=== PATIENT | male | born 1940 | race Caucasian/White ===

== ENCOUNTER 2017-07-23 08:15 | Inpatient (IN) | payer MEDICARE, MEDICAID ==
[2017-07-23] VITALS (23 sets, daily range): BP systolic 106–176; BP diastolic 47–118
[~2017-07-23] VITALS: Ht 172.7 cm; Wt 61.7 kg
[2017-07-23 09:24] LABS: CHLORIDE 103 mEq/L (98-107)
[2017-07-23 09:25] LABS: INR 1.1; PARTIAL THROMBOPLASTIN TIME 26.1 sec (23.4-31.0); PROTHROMBIN TIME 11.1 sec (9.4-11.6)
[2017-07-23 09:34] LABS: BASOPHILS % 0.3 % (0.0-2.0); EOSINOPHILS % 1.2 % (0.0-5.0); HEMOGLOBIN. 14.1 g/dL (14.0-18.0); LYMPHOCYTES % 9.8 % (20.0-50.0); MEAN CORPUSCULAR HEMOGLOBIN 29.3 pg (28.0-32.0); MEAN CORPUSCULAR VOLUME 84.8 fL (80.0-94.0); MEAN PLATELET VOLUME 8.2 fl (7.4-10.4); MONOCYTES % 10.1 % (2.0-8.0); NEUTROPHILS % 78.6 % (40.0-76.0); PLATELET 239 x1000/uL (130-400); RED BLOOD CELL COUNT 4.83 mill/uL (4.7-6.1); RED CELL DISTRIBUTION WIDTH 13.6 % (11.6-14.6)
[2017-07-23] MEDS ORDERED: SODIUM CHLORIDE 0.9% 1000ML BAG (SEPSIS BOLUS) IV ONE (10:00)
[2017-07-23 10:39] LABS: CREATINE KINASE MB FRACTION 6.5 ng/mL (0.5-3.6)
[2017-07-23 10:42] LABS: KETONES URINE 2+ (NEGATIVE); LEUKOCYTE ESTERASE URINE NEGATIVE (NEGATIVE); NITRITE URINE NEGATIVE (NEGATIVE); OCCULT BLOOD URINE NEGATIVE (NEGATIVE); PH URINE 5.5 (4.5-8.0); PROTEIN URINE TRACE (NEGATIVE); SPECIFIC GRAVITY URINE 1.025 (1.005-1.030)
[2017-07-23 10:45] LABS: CLARITY URINE CLEAR (CLEAR)
[2017-07-23] MEDS ORDERED: PHENYTOIN SODIUM 500 MG in SODIUM CHLORIDE 0.9% 50 ML IV ONE (10:45)
[2017-07-23 10:46] LABS: COLOR URINE YELLOW (YELLOW)
[2017-07-23] MEDS ORDERED: NICARDIPINE 100 MG in SODIUM CHLORIDE 0.9% 60 ML IV PRN ×2 (12:45→13:00)
[2017-07-23 12:55] LABS: *AMPHETAMINES SCREEN URINE NEGATIVE (NEGATIVE); *BARBITURATES SCREEN URINE NEGATIVE (NEGATIVE); *BENZODIAZEPINES SCREEN URINE NEGATIVE (NEGATIVE); *COCAINE SCREEN URINE NEGATIVE (NEGATIVE); CANNABINOID URINE SCREEN NEGATIVE (NEGATIVE); METHADONE URINE SCREEN NEGATIVE (NEGATIVE); OPIATES URINE SCREEN NEGATIVE (NEGATIVE); PHENCYCLIDINE URINE SCREEN NEGATIVE (NEGATIVE)
[2017-07-23] MEDS: DEXT 5%/LACTATED RINGERS 1,000 ML IV SCH (13:29)
[2017-07-23] MEDS: DEXAMETHASONE 4MG/ML 1ML VIAL IV SCH ×2 (13:29→17:46)
[2017-07-23] MEDS ORDERED: ACETAMINOPHEN 650MG SUPP PR PRN (15:00)
[2017-07-23] MEDS ORDERED: ONDANSETRON HCL 4MG/2ML VIAL IV PRN (15:00)
[2017-07-24] VITALS (34 sets, daily range): BP systolic 100–209; BP diastolic 50–102
[2017-07-24] MEDS: DEXAMETHASONE 4MG/ML 1ML VIAL IV SCH ×4 (00:27→18:46)
[2017-07-24 05:20] LABS: BASOPHILS % 0.4 % (0.0-2.0); HEMATOCRIT. 41.9 % (42.0-52.0); HEMOGLOBIN. 15.3 g/dL (14.0-18.0); LYMPHOCYTES % 9.2 % (20.0-50.0); MEAN CORPUSCULAR HEMOGLOBIN 30.9 pg (28.0-32.0); MEAN CORPUSCULAR VOLUME 84.8 fL (80.0-94.0); MEAN PLATELET VOLUME 8.9 fl (7.4-10.4); MONOCYTES % 1.7 % (2.0-8.0); NEUTROPHILS % 88.7 % (40.0-76.0); PLATELET 162 x1000/uL (130-400); RED BLOOD CELL COUNT 4.94 mill/uL (4.7-6.1); RED CELL DISTRIBUTION WIDTH 13.4 % (11.6-14.6)
[2017-07-24 05:29] LABS: CHLORIDE 108 mEq/L (98-107)
[2017-07-24] MEDS: DEXT 5%/LACTATED RINGERS 1,000 ML IV SCH ×2 (06:03→22:42)
[2017-07-24] MEDS ORDERED: GADOBENATE DIMEGLUMINE 529 MG/ML 10ML IV ONE (13:03)
[2017-07-24 16:47] LABS: VITAMIN B12 SERUM 615 pg/mL (211-911)
[2017-07-24] MEDS: PHENYTOIN SODIUM 100MG/2ML VIAL IV SCH (22:43)
[2017-07-25] VITALS (24 sets, daily range): BP systolic 101–158; BP diastolic 43–120
[2017-07-25] MEDS: DEXAMETHASONE 4MG/ML 1ML VIAL IV SCH ×4 (00:22→18:00)
[2017-07-25 06:00] LABS: BASOPHILS % 0.1 % (0.0-2.0); HEMATOCRIT. 38.8 % (42.0-52.0); HEMOGLOBIN. 13.7 g/dL (14.0-18.0); LYMPHOCYTES % 7.7 % (20.0-50.0); MEAN CORPUSCULAR HEMOGLOBIN 29.6 pg (28.0-32.0); MEAN CORPUSCULAR VOLUME 83.9 fL (80.0-94.0); MEAN PLATELET VOLUME 8.4 fl (7.4-10.4); MONOCYTES % 6.4 % (2.0-8.0); NEUTROPHILS % 85.8 % (40.0-76.0); PLATELET 236 x1000/uL (130-400); RED BLOOD CELL COUNT 4.62 mill/uL (4.7-6.1); RED CELL DISTRIBUTION WIDTH 13.4 % (11.6-14.6)
[2017-07-25] MEDS: PHENYTOIN SODIUM 100MG/2ML VIAL IV SCH ×2 (06:04→13:24)
[2017-07-25 06:08] LABS: CHLORIDE 108 mEq/L (98-107)
[2017-07-25] MEDS: HYDRALAZINE HCL 25MG TABLET PO SCH ×2 (13:00→21:57)
[2017-07-25] MEDS: DEXT 5%/LACTATED RINGERS 1,000 ML IV SCH (14:53)
[2017-07-26] VITALS: BP 106/76
[2017-07-26] MEDS: DEXAMETHASONE 4MG/ML 1ML VIAL IV SCH ×2 (01:02→12:19)
[2017-07-26] MEDS: PHENYTOIN SODIUM 100MG/2ML VIAL IV SCH ×2 (02:29→09:05)
[2017-07-26 04:00] VITALS: BP 158/70
[2017-07-26] MEDS: DEXT 5%/LACTATED RINGERS 1,000 ML IV SCH (07:10)
[2017-07-26 07:51] LABS: CHLORIDE 107 mEq/L (98-107)
[2017-07-26 08:00] VITALS: BP 133/73
[2017-07-26] MEDS: HYDRALAZINE HCL 25MG TABLET PO SCH ×2 (09:00→21:13)
[2017-07-26 09:34] LABS: BASOPHILS % 0.2 % (0.0-2.0); HEMOGLOBIN. 13.7 g/dL (14.0-18.0); LYMPHOCYTES % 11.7 % (20.0-50.0); MEAN CORPUSCULAR HEMOGLOBIN 29.7 pg (28.0-32.0); MEAN CORPUSCULAR VOLUME 84.8 fL (80.0-94.0); MEAN PLATELET VOLUME 8.7 fl (7.4-10.4); MONOCYTES % 8.8 % (2.0-8.0); NEUTROPHILS % 79.3 % (40.0-76.0); PLATELET 238 x1000/uL (130-400); RED BLOOD CELL COUNT 4.61 mill/uL (4.7-6.1); RED CELL DISTRIBUTION WIDTH 13.3 % (11.6-14.6)
[2017-07-26 12:00] VITALS: BP 119/59
[2017-07-26] MEDS ORDERED: PHENYTOIN SODIUM 300 MG in SODIUM CHLORIDE 0.9% 50 ML IV SCH (15:00)
[2017-07-26 16:00] VITALS: BP 119/59
[2017-07-26 20:00] VITALS: BP 155/57
[2017-07-26] MEDS ORDERED: DOXAZOSIN MESYLATE 4MG TABLET PO SCH (21:00)
[2017-07-26] MEDS ORDERED: RISPERIDONE 1MG TABLET PO SCH (21:00)
[2017-07-26] MEDS: PHENYTOIN SODIUM EXTENDED 100MG CAPSULE PO SCH (21:12)
[2017-07-27] VITALS: BP 151/79
[2017-07-27] MEDS: DEXT 5%/LACTATED RINGERS 1,000 ML IV SCH ×2 (00:18→21:23)
[2017-07-27 04:00] VITALS: BP 146/64
[2017-07-27 07:40] LABS: HEMATOCRIT. 41.4 % (42.0-52.0); HEMOGLOBIN. 14.6 g/dL (14.0-18.0); MEAN CORPUSCULAR HEMOGLOBIN 29.7 pg (28.0-32.0); MEAN CORPUSCULAR VOLUME 84.2 fL (80.0-94.0); MEAN PLATELET VOLUME 8.3 fl (7.4-10.4); PLATELET 246 x1000/uL (130-400); RED BLOOD CELL COUNT 4.92 mill/uL (4.7-6.1); RED CELL DISTRIBUTION WIDTH 13.4 % (11.6-14.6)
[2017-07-27 07:47] LABS: CHLORIDE 105 mEq/L (98-107)
[2017-07-27 08:00] VITALS: BP 154/70
[2017-07-27] MEDS: RISPERIDONE 0.25MG TABLET PO SCH ×2 (08:25→21:24)
[2017-07-27] MEDS: HYDRALAZINE HCL 25MG TABLET PO SCH ×2 (08:26→21:24)
[2017-07-27] MEDS: PHENYTOIN SODIUM EXTENDED 100MG CAPSULE PO SCH ×3 (08:26→21:23)
[2017-07-27] MEDS ORDERED: POTASSIUM CHLORIDE 20MEQ TABLET SR PO SCH (12:15)
[2017-07-27 12:42] VITALS: BP 128/62
[2017-07-27] MEDS ORDERED: PHENYTOIN SODIUM 500 MG in SODIUM CHLORIDE 0.9% 50 ML IV SCH (14:00)
[2017-07-27 14:57] LABS: PLATELET ESTIMATE NORMAL
[2017-07-27 16:00] VITALS: BP 119/59
[2017-07-27 20:00] VITALS: BP 166/62
[2017-07-28] VITALS: BP 146/62
[2017-07-28 04:00] VITALS: BP 110/76
[2017-07-28] MEDS: PHENYTOIN SODIUM EXTENDED 100MG CAPSULE PO SCH ×3 (05:41→21:14)
[2017-07-28 08:00] VITALS: BP 148/69
[2017-07-28] MEDS: HYDRALAZINE HCL 25MG TABLET PO SCH ×2 (08:54→21:00)
[2017-07-28] MEDS: MEMANTINE HCL 5MG TABLET PO SCH (08:55)
[2017-07-28] MEDS: RISPERIDONE 0.25MG TABLET PO SCH ×2 (09:08→21:14)
[2017-07-28] MEDS: DEXT 5%/LACTATED RINGERS 1,000 ML IV SCH (09:09)
[2017-07-28 12:00] VITALS: BP 133/54
[2017-07-28 12:11] LABS: CHLORIDE 104 mEq/L (98-107)
[2017-07-28 12:14] LABS: BASOPHILS % 0.5 % (0.0-2.0); EOSINOPHILS % 10.9 % (0.0-5.0); HEMATOCRIT. 44.8 % (42.0-52.0); HEMOGLOBIN. 15.5 g/dL (14.0-18.0); LYMPHOCYTES % 16.2 % (20.0-50.0); MEAN CORPUSCULAR HEMOGLOBIN 29.5 pg (28.0-32.0); MEAN CORPUSCULAR VOLUME 85.2 fL (80.0-94.0); MEAN PLATELET VOLUME 8.5 fl (7.4-10.4); MONOCYTES % 13.2 % (2.0-8.0); NEUTROPHILS % 59.2 % (40.0-76.0); PLATELET 226 x1000/uL (130-400); RED BLOOD CELL COUNT 5.25 mill/uL (4.7-6.1); RED CELL DISTRIBUTION WIDTH 13.5 % (11.6-14.6)
[2017-07-28 16:00] VITALS: BP 145/76
[2017-07-28 20:00] VITALS: BP 118/63
[2017-07-29] VITALS: BP 139/79
[2017-07-29 04:00] VITALS: BP 155/68
[2017-07-29] MEDS: PHENYTOIN SODIUM EXTENDED 100MG CAPSULE PO SCH ×3 (06:12→21:06)
[2017-07-29] MEDS: DEXT 5%/LACTATED RINGERS 1,000 ML IV SCH ×2 (06:15→18:13)
[2017-07-29 08:00] VITALS: BP 142/69
[2017-07-29] MEDS: HYDRALAZINE HCL 25MG TABLET PO SCH ×2 (08:37→21:06)
[2017-07-29] MEDS: MEMANTINE HCL 5MG TABLET PO SCH (08:38)
[2017-07-29] MEDS: RISPERIDONE 0.5MG TABLET PO SCH ×2 (08:38→21:06)
[2017-07-29 12:00] VITALS: BP 137/71
[2017-07-29 16:00] VITALS: BP 128/67
[2017-07-29 20:00] VITALS: BP 153/65
[2017-07-29] MEDS: ATORVASTATIN CALCIUM 20MG TABLET PO SCH (21:06)
[2017-07-30] VITALS: BP 133/71
[2017-07-30] MEDS: PHENYTOIN SODIUM EXTENDED 100MG CAPSULE PO SCH ×3 (06:14→20:55)
[2017-07-30 07:27] LABS: HEMATOCRIT 41.6 % (42.0-52.0); HEMOGLOBIN 14.4 g/dL (14.0-18.0); MEAN CORPUSCULAR HEMOGLOBIN 29.3 pg (28.0-32.0); MEAN CORPUSCULAR VOLUME 84.6 fL (80.0-94.0); PLATELET 235 x1000/uL (130-400); RED BLOOD CELL COUNT 4.91 mill/uL (4.7-6.1); RED CELL DISTRIBUTION WIDTH 13.5 % (11.6-14.6)
[2017-07-30 08:00] VITALS: BP 117/67
[2017-07-30 08:37] LABS: CHLORIDE 103 mEq/L (98-107)
[2017-07-30] MEDS: HYDRALAZINE HCL 25MG TABLET PO SCH ×2 (08:52→20:55)
[2017-07-30] MEDS: MEMANTINE HCL 5MG TABLET PO SCH (09:00)
[2017-07-30] MEDS: RISPERIDONE 0.5MG TABLET PO SCH ×2 (09:10→20:55)
[2017-07-30] MEDS: AMIODARONE HCL 200 MG TABLET PO SCH ×2 (11:21→20:55)
[2017-07-30] MEDS: METOPROLOL TARTRATE 5MG/5ML VIAL IV PRN ×2 (11:22→14:10)
[2017-07-30 12:00] VITALS: BP 100/61
[2017-07-30 16:00] VITALS: BP 131/66
[2017-07-30 20:00] VITALS: BP 134/50
[2017-07-30] MEDS: ATORVASTATIN CALCIUM 20MG TABLET PO SCH (20:55)
[2017-07-31] VITALS: BP 138/80
[2017-07-31 04:00] VITALS: BP 143/68
[2017-07-31] MEDS: PHENYTOIN SODIUM EXTENDED 100MG CAPSULE PO SCH ×2 (06:00→14:23)
[2017-07-31 08:00] VITALS: BP 133/67
[2017-07-31] MEDS: AMIODARONE HCL 200 MG TABLET PO SCH (09:25)
[2017-07-31] MEDS: HYDRALAZINE HCL 25MG TABLET PO SCH (09:25)
[2017-07-31] MEDS: MEMANTINE HCL 5MG TABLET PO SCH (09:25)
[2017-07-31] MEDS: RISPERIDONE 0.5MG TABLET PO SCH (09:25)
[2017-07-31 12:00] VITALS: BP 145/61
[2017-07-31] MEDS ORDERED: HALOPERIDOL LACTATE 5MG/ML VIAL IM SCH (12:50)
[2017-07-31 14:54] VITALS: BP 145/61
== END 2017-07-31 15:36 | DRG 64 ==
LOC: ER 08:31 → EDBD 08:31 → MICUNO 10:47 → EDBEDREQTM 10:54 → EDBEDREQSVC 10:54 → EDBEDREQ 10:54 → ENRESERV 11:11 → 7WST 07-25 14:29
PROVIDERS: ADMIT Internal Medicine; ATTEND Internal Medicine
DX: I62.9 Nontraumatic intracranial hemorrhage, unspecified (principal); G93.40 Encephalopathy, unspecified; E46 Unspecified protein-calorie malnutrition; E87.2 Acidosis; I47.1 Supraventricular tachycardia; I49.5 Sick sinus syndrome; E86.0 Dehydration; I48.91 Unspecified atrial fibrillation; M62.82 Rhabdomyolysis; E87.6 Hypokalemia; F03.90 Unspecified dementia, unspecified severity, without behavioral disturbance, psychotic disturbance, mood disturbance, and anxiety; W18.30XA Fall on same level, unspecified, initial encounter; F10.129 Alcohol abuse with intoxication, unspecified; I10 Essential (primary) hypertension; Y93.89 Activity, other specified; Y92.89 Other specified places as the place of occurrence of the external cause; Y99.8 Other external cause status
CPT/HCPCS: 36415; 70450; 70553; 71045; 80048; 80053; 80061; 80185; 80305; 81003; 82550; 82553; 82607; 83036; 83605; 83690; 83735; 83880; 84484; 85025; 85027; 85610; 85730; 86592; 87040; 87086; 92610; 93005; 93225; 93306; 93970; 96365; 97116; 97162; 97166; 97530; 99291; A9577; C1893; G0482; J1100; J1165; J1630; J3490; J7030; J7050